=== PATIENT | female | born 2005 | race Caucasian/White ===

== ENCOUNTER 2025-03-06 09:58 | Emergency (ER) | payer BC ==
[~2025-03-06] VITALS: Ht 170.2 cm; Wt 109.1 kg
[2025-03-06 10:34] VITALS: BP 119/86; PULSE 83; RESP 18; TEMP 97.9; O2SAT 99
== END 2025-03-06 16:14 | disposition left against medical advice (07) ==
LOC: ER 09:59
DX: R55 Syncope and collapse (principal); Z53.21 Procedure and treatment not carried out due to patient leaving prior to being seen by health care provider